=== PATIENT | male | born 1955 | race Caucasian/White ===

== ENCOUNTER 2020-01-17 15:37 | Emergency (ER) | payer MEDICARE, MEDICAID ==
[~2020-01-17] VITALS: Ht 190.5 cm; Wt 113.6 kg
[~2020-01-17 15:37] MED LIST: ALBU18HF2 INH; AMIO200T62 PO; APIX5TAB3 PO; DILT240C94 PO; FOLI0.4T14 PO; HYDR-3973 PO; LISI-604 PO; THIA100T70 PO; UMEC1DIS INH
[2020-01-17 17:00] VITALS: BP 124/67
[2020-01-17] MEDS ORDERED: LIDOcaine 1% W/epiNEPHrine 1:200,000 10ml vial IJ STA (17:12)
[2020-01-17] MEDS ORDERED: LIDOcaine 1% w/epiNEPHrine 1:200,000 30ml vial IJ STA (17:15)
== END 2020-01-17 18:34 | disposition home or self-care (01) ==
LOC: ER 15:37
DX: T81.31XA Disruption of external operation (surgical) wound, not elsewhere classified, initial encounter (principal); Z96.612 Presence of left artificial shoulder joint; X58.XXXA Exposure to other specified factors, initial encounter; Y93.89 Activity, other specified; Y92.89 Other specified places as the place of occurrence of the external cause; Y99.8 Other external cause status
CPT/HCPCS: 88305; 88311; 88331; 96374; 99283; 99284

== ENCOUNTER 2020-06-28 08:43 | Inpatient (IN) | payer MEDICARE, MEDICAID ==
[~2020-06-28] VITALS: Ht 190.5 cm; Wt 121.4 kg
[2020-06-28] VITALS (14 sets, daily range): BP systolic 106–142; BP diastolic 56–84
[~2020-06-28 08:43] MED LIST changes: -FOLI0.4T14 PO; -LISI-604 PO; +LISI-790 PO; -THIA100T70 PO; -UMEC1DIS INH; +UMEC1DIS PO; +cefazolin/dext.iso 2gm/100ml 100 ML IV ONE; +famotidine 20mg tablet PO ONE; +ringers solution, lacted 1,000 ML IV SCH; +tranexamic acid 650mg tablet PO ONE; +vancomycin 1,500 MG in NS 300ml IV soln IV ONE
[2020-06-28 10:31] LABS: ALANINE AMINOTRANSFERASE 15 U/L (12-78); ALBUMIN 2.4 G/DL (3.4-5.0); ALBUMIN/GLOBULIN RATIO 0.6 (1.1-1.5); ALKALINE PHOSPHATASE 85 IU/L (46-116); ANION GAP 7 (8-16); ASPARTATE AMINO TRANSFERASE 14 U/L (10-37); BILIRUBIN,TOTAL 0.4 MG/DL (0.1-1.0); BLOOD UREA NITROGEN 15 MG/DL (7-18); BUN/CREATININE RATIO 18.3 (5.4-32.0); C-REACTIVE PROTEIN 12.61 MG/DL (0.0-0.5); CALCIUM 8.6 MG/DL (8.5-10.1); CHLORIDE 100 MMOL/L (99-107); CREATININE 0.82 MG/DL (0.60-1.10); GLUCOSE 95 MG/DL (70-104); POTASSIUM 4.2 MMOL/L (3.5-5.1); SODIUM 136 MMOL/L (135-145); TOTAL CARBON DIOXIDE 29.1 MMOL/L (24-32); TOTAL PROTEIN 6.6 G/DL (6.4-8.2); eGFR > 90 ML/MIN
[2020-06-28] MEDS ORDERED: ketorolac trometh. 30mg/ml inj. ONE (10:55)
[2020-06-28] MEDS ORDERED: ROPIVAcaine 0.5% (5mg/ml) 30ml vial ONE ×2 (10:55→11:42)
[2020-06-28 11:10] LABS: BASOPHILS # (AUTO) 0.1 X10'3 (0-0.2); BASOPHILS % (AUTO) 1.1 % (0-1); EOSINOPHILS # (AUTO) 0.2 X10'3 (0-0.9); EOSINOPHILS % (AUTO) 2.3 % (0-6); HEMATOCRIT 32.9 % (42.0-52.0); HEMOGLOBIN 10.7 g/dl (14.0-17.9); LYMPHOCYTES # (AUTO) 1.4 X10'3 (1.1-4.8); LYMPHOCYTES % (AUTO) 21.7 % (21-51); MEAN CORPUSCULAR HEMOGLOBIN 29.2 PG (27.0-31.0); MEAN CORPUSCULAR HGB CONC 32.4 g/dL (33.0-36.5); MEAN CORPUSCULAR VOLUME 90.2 FL (78-98); MEAN PLATELET VOLUME 7.3 FL (7.4-10.4); MONOCYTES # (AUTO) 0.8 X10'3 (0-0.9); MONOCYTES % (AUTO) 12.2 % (2-12); NEUTROPHILS # (AUTO) 4.2 X10'3 (1.8-7.7); NEUTROPHILS % (AUTO) 62.7 % (42-75); PLATELET COUNT 309 X10'3 (140-440); RED BLOOD COUNT 3.64 X10'6 (4.70-6.10); RED CELL DISTRIBUTION WIDTH 14.7 % (11.5-14.5); WHITE BLOOD COUNT 6.6 X10'3 (4.5-11.0)
[2020-06-28] MEDS ORDERED: ondansetron/PF 4mg/2ml inj ONE (11:27)
[2020-06-28] MEDS ORDERED: sevoflurane 250ml liquid IH ONE (11:27)
[2020-06-28] MEDS ORDERED: fentaNYL/PF 50MCG/1 ML 2ML syringe ONE (11:39)
[2020-06-28] MEDS ORDERED: MIDAZolam 1 MG/ML 5ML VIAL ONE (11:40)
[2020-06-28] MEDS ORDERED: dexamethasone sod phosphate 4mg/ml inj. ONE (11:42)
[2020-06-28] MEDS ORDERED: propofol inj 20 ML IV ONE (11:42)
[2020-06-28] MEDS ORDERED: LIDOcaine 1%/PF 5ML 10 MG/ML VIAL ONE (11:42)
[2020-06-28] MEDS ORDERED: ondansetron/PF 4mg/2ml inj IV PRN ×2 (12:35→14:35)
[2020-06-28] MEDS ORDERED: ringers solution, lacted 1,000 ML IV SCH (12:35)
[2020-06-28] MEDS ORDERED: morphine 2 MG/ML inj. syringe IV PRN (12:35)
[2020-06-28] MEDS ORDERED: meperidine/PF 25mg/ml syringe IV PRN ×3 (12:35)
[2020-06-28] MEDS ORDERED: proCHLORperazine 10 MG/2 ml inj IV PRN (12:35)
[2020-06-28] MEDS ORDERED: morphine 4 MG/ML inj SYRINge IV PRN (12:35)
[2020-06-28] MEDS ORDERED: ketorolac trometh. 30mg/ml inj. IV ONE ×2 (12:41→13:20)
[2020-06-28] MEDS: ROPIVAcaine 0.5% (5mg/ml) 30ml vial IJ ONE ×2 (12:41→13:50)
[2020-06-28] MEDS: tobramycin sulfate 1.2gm vial TP ONE ×2 (12:56→13:24)
[2020-06-28] MEDS ORDERED: ROPIVAcaine 0.5% (5mg/ml) 30ml vial IJ ONE (13:20)
[2020-06-28] MEDS: vancomycin 1,000mg inj ONE ×2 (13:24→15:35)
--- NOTE | 2020-06-28 14:33 | NUR ---
Received from OR via ORTHO BED WITH PRRICARDO , accompanied by Anesthesiologist HUGO and report given by Anesthesiolgist. PATIENT WITH SLING TO LEFT UE, + CAP REFILL AND RADIAL PULSE PRESENT. SCDS DONNED. 18G PIV IN RIGHT UE RUNNING LR AT 100. DENIES PAIN AT THIS TIME. Addendum: 06/28/20 at 1445 by Faustino Gregory RN, RN Amended: Links added.
[2020-06-28] MEDS ORDERED: bisacodyl 10mg suppository rectal RC PRN (14:35)
[2020-06-28] MEDS ORDERED: magnesium hydroxide 30ml (MOM) UD suspension PO PRN (14:35)
[2020-06-28] MEDS ORDERED: acetaminophen 325mg tablet PO PRN (14:35)
[2020-06-28] MEDS ORDERED: oxyCODONE IR 5mg (immed. release) tablet PO PRN (14:35)
[2020-06-28] MEDS ORDERED: diphenhydrAMINE 25mg capsule PO PRN ×2 (14:35)
[2020-06-28] MEDS ORDERED: albuterol 2.5 MG/3 ML nebule NEB PRN (14:45)
--- NOTE | 2020-06-28 14:56 | NUR ---
Patient in room PAS IN 902. I have received report from Faustino LAMBERT and had the opportunity to ask questions and assume patient care.
--- NOTE | 2020-06-28 15:10 | NUR ---
PATIENT HAS MET ALL CRITERIA FOR TRANSFER TO THE SURGICAL/[facility]/PCU/ORTHO/ICU FLOOR. VSS. DRESSINGS INTACT. BED LOW, CALL LIGHT PRESENT AND 2 RAILS UP. RN PRESENT TO ACCEPT CARE OF PATIENT AND REPORT HAS BEEN CALLED. ALL QUESTIONS ANSWERED TO ACCEPTING RN. Addendum: 06/28/20 at 1511 by Faustino Gregory RN RN Amended: Links added.
[2020-06-28] MEDS: potassium cl 20mEq in 1/2 NS 1,000 ML IV SCH ×2 (16:32→22:35)
[2020-06-28] MEDS: ceFAZolin/D5W- 1GM premix 50 ML IV SCH (16:38)
[2020-06-28 16:56] LABS: ALANINE AMINOTRANSFERASE 14 U/L (12-78); ALBUMIN 2.2 G/DL (3.4-5.0); ALBUMIN/GLOBULIN RATIO 0.5 (1.1-1.5); ALKALINE PHOSPHATASE 79 IU/L (46-116); ASPARTATE AMINO TRANSFERASE 12 U/L (10-37); BILIRUBIN,DIRECT 0.2 MG/DL (0-0.3); BILIRUBIN,TOTAL 0.4 MG/DL (0.1-1.0); TOTAL PROTEIN 6.3 G/DL (6.4-8.2)
[2020-06-28] MEDS: oxyCODONE IR 5mg (immed. release) tablet PO PRN ×2 (17:13→21:20)
--- NOTE | 2020-06-28 18:58 | NUR ---
Problems reprioritized. Patient report given, questions answered & plan of care reviewed with Angeles LAMBERT.
[2020-06-28] MEDS ORDERED: vancomycin/NS 1 GM ADD-VANTAGE 250 ML IV SCH (20:00)
[2020-06-28] MEDS: sennosides 8.6mg tablet PO SCH (20:30)
[2020-06-28] MEDS: amiodarone 200mg tablet PO SCH (20:30)
[2020-06-28] MEDS: apixaban 5mg tablet PO SCH (20:30)
[2020-06-28] MEDS: acetaminophen 325mg tablet PO SCH (20:31)
[2020-06-29] MEDS: HYDROmorphone 1 mg/ml syringe IV PRN ×3 (00:29→21:38)
[2020-06-29] MEDS: ceFAZolin/D5W- 1GM premix 50 ML IV SCH (00:36)
[2020-06-29] MEDS: oxyCODONE IR 5mg (immed. release) tablet PO PRN ×7 (01:30→23:30)
[2020-06-29] MEDS: acetaminophen 325mg tablet PO SCH ×4 (01:30→19:34)
[2020-06-29 02:00] VITALS: BP 110/67
[2020-06-29 06:00] VITALS: BP 110/70
--- NOTE | 2020-06-29 06:12 | NUR ---
Problems reprioritized. Patient report given, questions answered & plan of care reviewed with PETRA Robertson.
--- NOTE | 2020-06-29 06:31 | NUR ---
Patient in room ORTHO 4024. I have received report from Angeles LAMBERT and had the opportunity to ask questions and assume patient care.
[2020-06-29] MEDS: potassium cl 20mEq in 1/2 NS 1,000 ML IV SCH ×3 (06:35→16:03)
[2020-06-29] MEDS: lisinopril 5mg tablet PO SCH (07:31)
[2020-06-29] MEDS: diltiazem CD 120mg capsule (once-daily) PO SCH (07:32)
[2020-06-29] MEDS: amiodarone 200mg tablet PO SCH ×2 (07:33→19:35)
[2020-06-29] MEDS: apixaban 5mg tablet PO SCH ×2 (07:36→19:34)
[2020-06-29 07:59] LABS: ANION GAP 7 (8-16); CHLORIDE 102 MMOL/L (99-107); SODIUM 135 MMOL/L (135-145); TOTAL CARBON DIOXIDE 26.5 MMOL/L (24-32)
--- NOTE | 2020-06-29 09:05 | NUR ---
Received from OR via [facility] , accompanied by Anesthesiologist HUGO and report given by Anesthesiolgist. PATIENT WITH 20G PIV IN LEFT UE RUNNING LR AT 100. DENIES PAIN LEFT FOOT WITH TOES EXPOSED WITH + CAP REFILL AND ARE ALL PWD. 10L MASK ON WITH 100% SATURATIONS. DENIES PAIN.
[2020-06-29 10:00] VITALS: BP 129/76
[2020-06-29 10:06] LABS: HEMATOCRIT 35.8 % (42.0-52.0); HEMOGLOBIN 11.5 g/dl (14.0-17.9); MEAN CORPUSCULAR HEMOGLOBIN 29.1 PG (27.0-31.0); MEAN CORPUSCULAR HGB CONC 32.2 g/dL (33.0-36.5); MEAN CORPUSCULAR VOLUME 90.6 FL (78-98); RED BLOOD COUNT 3.95 X10'6 (4.70-6.10); RED CELL DISTRIBUTION WIDTH 14.3 % (11.5-14.5)
[2020-06-29] MEDS: CefTRIAXone 2gm/D5W 50ml BAG 50 ML IV SCH (10:06)
[2020-06-29 10:11] LABS: WHITE BLOOD COUNT 14.1 X10'3 (4.5-11.0)
[2020-06-29 10:12] LABS: MEAN PLATELET VOLUME 8.1 FL (7.4-10.4); PLATELET COUNT 436 X10'3 (140-440)
[2020-06-29 10:40] LABS: PLATELET ESTIMATE NORMAL; TOTAL CELLS COUNTED 100
[2020-06-29] MEDS: vancomycin/NS 1 GM ADD-VANTAGE 250 ML IV SCH ×2 (11:19→18:52)
[2020-06-29] MEDS: HYDROmorphone inj. 0.5 MG/0.5 ML DISP.SYRIN IV PRN (13:26)
[2020-06-29 14:00] VITALS: BP 102/66
[2020-06-29] MEDS ORDERED: ondansetron 4mg rapidly disintigrating tab PO PRN (14:05)
--- NOTE | 2020-06-29 16:37 | NUR ---
Pt has had 170ml out of his ZEE drain so far this shift, MD aware. Pt had a new IV placed in his L hand. Pt continues to refuse to use his shoulder sling or wrap but agrees to elevate L arm on pillows in recliner. Pt displays no sign of vascular occlusion in LUE. Strong L radial pulse, L hand cap refil < 3 seconds. Will continue to monitor pt.
[2020-06-29 18:00] VITALS: BP 129/69
--- NOTE | 2020-06-29 18:33 | NUR ---
Problems reprioritized. Patient report given, questions answered & plan of care reviewed with Angeles LAMBERT.
[2020-06-29] MEDS: lactobacillus rhamnosus 10,000 MMU CELLS/CAPSULE PO SCH (19:34)
[2020-06-29] MEDS: sennosides 8.6mg tablet PO SCH (19:35)
[2020-06-29 22:00] VITALS: BP 114/61
[2020-06-30] MEDS: acetaminophen 325mg tablet PO SCH ×3 (02:15→13:13)
[2020-06-30] MEDS: vancomycin/NS 1 GM ADD-VANTAGE 250 ML IV SCH ×3 (02:15→17:41)
[2020-06-30] MEDS: oxyCODONE IR 5mg (immed. release) tablet PO PRN ×4 (03:24→21:56)
[2020-06-30] MEDS: potassium cl 20mEq in 1/2 NS 1,000 ML IV SCH (04:48)
[2020-06-30 06:00] VITALS: BP 127/67
--- NOTE | 2020-06-30 06:33 | NUR ---
Problems reprioritized. Patient report given, questions answered & plan of care reviewed with PETRA Robertson.
[2020-06-30] MEDS: amiodarone 200mg tablet PO SCH ×2 (07:09→20:04)
[2020-06-30] MEDS: apixaban 5mg tablet PO SCH ×2 (07:09→20:04)
[2020-06-30] MEDS: diltiazem CD 120mg capsule (once-daily) PO SCH (07:10)
[2020-06-30] MEDS: lisinopril 5mg tablet PO SCH (07:12)
[2020-06-30] MEDS: lactobacillus rhamnosus 10,000 MMU CELLS/CAPSULE PO SCH ×2 (07:12→20:04)
[2020-06-30] MEDS: HYDROmorphone 1 mg/ml syringe IV PRN ×2 (07:13→15:24)
[2020-06-30 07:14] LABS: EOSINOPHILS # (AUTO) 0.1 X10'3 (0-0.9); HEMOGLOBIN 11.2 g/dl (14.0-17.9); RED CELL DISTRIBUTION WIDTH 14.5 % (11.5-14.5)
[2020-06-30 07:15] LABS: BASOPHILS % (AUTO) 0.4 % (0-1); EOSINOPHILS % (AUTO) 0.5 % (0-6); HEMATOCRIT 34.8 % (42.0-52.0); LYMPHOCYTES % (AUTO) 25.9 % (21-51); MEAN CORPUSCULAR HEMOGLOBIN 29.4 PG (27.0-31.0); MEAN CORPUSCULAR HGB CONC 32.2 g/dL (33.0-36.5); MEAN CORPUSCULAR VOLUME 91.2 FL (78-98); MONOCYTES % (AUTO) 8.9 % (2-12); NEUTROPHILS # (AUTO) 7.3 X10'3 (1.8-7.7); NEUTROPHILS % (AUTO) 64.3 % (42-75); RED BLOOD COUNT 3.82 X10'6 (4.70-6.10)
[2020-06-30] MEDS: CefTRIAXone 2gm/D5W 50ml BAG 50 ML IV SCH (07:17)
[2020-06-30 07:21] LABS: MEAN PLATELET VOLUME 7.3 FL (7.4-10.4)
[2020-06-30 07:22] LABS: PLATELET COUNT 245 X10'3 (140-440); WHITE BLOOD COUNT 7.3 X10'3 (4.5-11.0)
[2020-06-30] MEDS ORDERED: VANCOMYCIN LEVEL IV ONE (09:30)
[2020-06-30 10:00] VITALS: BP 115/62
[2020-06-30] MEDS ORDERED: acetaminophen 325mg tablet PO PRN (14:35)
--- NOTE | 2020-06-30 16:16 | NUR ---
Pts only complaint is persistent pain the L shoulder. Output for ZEE drain is 50ml so far this shift. Pt continues to use L shoulder more than advised. Pt refuses shoulder wrap and sling. Will continue to monitor patient and remind pt to limit mobility with LUE.
[2020-06-30 18:00] VITALS: BP 111/67
--- NOTE | 2020-06-30 18:11 | NUR ---
Problems reprioritized. Patient report given, questions answered & plan of care reviewed with Praveena LAMBERT.
[2020-06-30] MEDS: sennosides 8.6mg tablet PO SCH (20:04)
[2020-06-30] MEDS: HYDROmorphone inj. 0.5 MG/0.5 ML DISP.SYRIN IV PRN (20:05)
--- NOTE | 2020-06-30 23:56 | NUR ---
Pt called out with c/o of his drain leaking blood onto the arm/pillow. I assessed it and there is serosanguineous drainage on the OpSite dressing onto the arm and pillowcase. I used sterile gloves and dried the drainage with sterile 4x4's, I then placed new 4x4's by ZEE site and an ABD pad between the arm and chest. I secured the dressing with stretchy Roberta and will notify Praveena LAMBERT to monitor it. The ZEE might need to be dc'd if continues to drain onto skin and not into the bulb. There is about 10-15ml's of serosanguineous drainage in the ZEE at this time. Per patient this has been happening since the drain was placed. If this continues then the drain will need to be removed and to inform the surgeon at that time.
[2020-07-01] MEDS: vancomycin/NS 1 GM ADD-VANTAGE 250 ML IV SCH ×3 (02:20→17:12)
[2020-07-01] MEDS: HYDROmorphone 1 mg/ml syringe IV PRN ×2 (02:21→16:03)
[2020-07-01] MEDS: oxyCODONE IR 5mg (immed. release) tablet PO PRN ×4 (05:00→21:45)
[2020-07-01 06:00] VITALS: BP 146/68
--- NOTE | 2020-07-01 06:04 | NUR ---
REPORT GIVEN TO PETRA CARRION.
[2020-07-01] MEDS: CefTRIAXone 2gm/D5W 50ml BAG 50 ML IV SCH (08:19)
[2020-07-01] MEDS: diltiazem CD 120mg capsule (once-daily) PO SCH (08:20)
[2020-07-01] MEDS: amiodarone 200mg tablet PO SCH ×2 (08:20→21:01)
[2020-07-01] MEDS: lactobacillus rhamnosus 10,000 MMU CELLS/CAPSULE PO SCH ×2 (08:20→21:01)
[2020-07-01] MEDS: HYDROmorphone inj. 0.5 MG/0.5 ML DISP.SYRIN IV PRN (08:21)
[2020-07-01] MEDS: lisinopril 5mg tablet PO SCH (08:21)
[2020-07-01] MEDS: apixaban 5mg tablet PO SCH ×2 (08:21→21:01)
[2020-07-01 09:50] LABS: RED CELL DISTRIBUTION WIDTH 14.6 % (11.5-14.5)
[2020-07-01 09:51] LABS: HEMATOCRIT 33.9 % (42.0-52.0); HEMOGLOBIN 10.9 g/dl (14.0-17.9); MEAN CORPUSCULAR HEMOGLOBIN 29.4 PG (27.0-31.0); MEAN CORPUSCULAR HGB CONC 32.1 g/dL (33.0-36.5); MEAN CORPUSCULAR VOLUME 91.4 FL (78-98); RED BLOOD COUNT 3.71 X10'6 (4.70-6.10)
[2020-07-01 10:00] VITALS: BP 124/65
[2020-07-01 11:12] LABS: TOTAL CELLS COUNTED 100
[2020-07-01 11:13] LABS: ELLIPTOCYTES FEW; PLATELET ESTIMATE NORMAL
[2020-07-01 11:14] LABS: PLATELET COUNT 345 X10'3 (140-440)
[2020-07-01 11:18] LABS: MEAN PLATELET VOLUME 7.8 FL (7.4-10.4)
--- NOTE | 2020-07-01 13:12 | NUR ---
at approximately 1100 pts ZEE drain fell out. drain contained 15mL of output. dressing reinforced. no complications
[2020-07-01 18:00] VITALS: BP 122/67
--- NOTE | 2020-07-01 18:43 | NUR ---
Problems reprioritized. Patient report given, questions answered & plan of care reviewed with Rosario LAMBERT.
[2020-07-01] MEDS: sennosides 8.6mg tablet PO SCH (21:01)
[2020-07-01 22:00] VITALS: BP 109/55
[2020-07-02] MEDS: vancomycin/NS 1 GM ADD-VANTAGE 250 ML IV SCH ×2 (01:28→11:35)
[2020-07-02] MEDS: oxyCODONE IR 5mg (immed. release) tablet PO PRN ×3 (01:36→11:36)
--- NOTE | 2020-07-02 06:23 | NUR ---
REPORT GIVEN TO PETRA FREITAS.
[2020-07-02] MEDS: diltiazem CD 120mg capsule (once-daily) PO SCH (08:10)
[2020-07-02] MEDS: amiodarone 200mg tablet PO SCH (08:11)
[2020-07-02] MEDS: lactobacillus rhamnosus 10,000 MMU CELLS/CAPSULE PO SCH (08:11)
[2020-07-02] MEDS: apixaban 5mg tablet PO SCH (08:12)
[2020-07-02 08:14] VITALS: BP_SYST 139
[2020-07-02] MEDS: lisinopril 5mg tablet PO SCH (08:14)
[2020-07-02] MEDS: CefTRIAXone 2gm/D5W 50ml BAG 50 ML IV SCH (08:40)
--- NOTE | 2020-07-02 10:58 | NUR ---
ACTING CLINICAL INSTRUCTOR, I REVIEWED STUDENT NURSE DOCUMENTATION
--- NOTE | 2020-07-02 11:34 | NUR ---
5F DUAL LUMEN PICC LINE INFORMATION: REF: [id number] LOT: [id number] EXP: 01/20/2021
== END 2020-07-02 16:00 | disposition home health service (06) | DRG 483 ==
LOC: PAS IN 08:43 → UNDOADMIN 08:43 → PAS IN 14:34 → ORTHO 4S 15:20 → PAS IN 15:20 → ORTHO 4S 06-29 07:00
PROVIDERS: ADMIT Orthopaedic Surgery; ATTEND Orthopaedic Surgery
PROC: 0RHK08Z Insertion of Spacer into Left Shoulder Joint, Open Approach (ICD-10-PCS; 2020-06-28)
PROC: 0RPK0JZ Removal of Synthetic Substitute from Left Shoulder Joint, Open Approach (ICD-10-PCS; 2020-06-28)
PROC: 3E0T3BZ Introduction of Anesthetic Agent into Peripheral Nerves and Plexi, Percutaneous Approach (ICD-10-PCS; 2020-06-28)
PROC: 0RRK0JZ Replacement of Left Shoulder Joint with Synthetic Substitute, Open Approach (ICD-10-PCS; principal; 2020-06-28 11:27)
PROC: 02HV33Z Insertion of Infusion Device into Superior Vena Cava, Percutaneous Approach (ICD-10-PCS; 2020-07-02)
PROC: B548ZZA Ultrasonography of Superior Vena Cava, Guidance (ICD-10-PCS; 2020-07-02)
DX: T84.59XA Infection and inflammatory reaction due to other internal joint prosthesis, initial encounter (principal); L02.414 Cutaneous abscess of left upper limb; Z96.612 Presence of left artificial shoulder joint; M75.122 Complete rotator cuff tear or rupture of left shoulder, not specified as traumatic; Y83.1 Surgical operation with implant of artificial internal device as the cause of abnormal reaction of the patient, or of later complication, without mention of misadventure at the time of the procedure; Y92.89 Other specified places as the place of occurrence of the external cause; Z79.899 Other long term (current) drug therapy; Z72.0 Tobacco use; D50.0 Iron deficiency anemia secondary to blood loss (chronic)
CPT/HCPCS: 36415; 36573; 80051; 80053; 80076; 80202; 84439; 84443; 85007; 85025; 85651; 86140; 86885; 86900; 86901; 87070; 87075; 87081; 87102; 93005; 94760; 97110; 97116; 97161; 97530; A4215; A4565; A4618; A7000; C1713; C1776; G0378; J0690; J0696; J1100; J1170; J1885; J2250; J2405; J2704; J2795; J3010; J3260; J3370; J3480; J7040; J7120

== ENCOUNTER 2020-11-21 13:50 | Outpatient (CLI) | payer MEDICARE, MEDICAID ==
[~2020-11-21 13:50] MED LIST changes: -cefazolin/dext.iso 2gm/100ml 100 ML IV ONE; -famotidine 20mg tablet PO ONE; -ringers solution, lacted 1,000 ML IV SCH; -tranexamic acid 650mg tablet PO ONE; -vancomycin 1,500 MG in NS 300ml IV soln IV ONE
[2020-11-21] MEDS ORDERED: LISI20TA28 PO (14:26)
[2020-11-21 14:42] LABS: BASOPHILS # (AUTO) 0.1 X10'3 (0-0.2); BASOPHILS % (AUTO) 0.8 % (0-1); EOSINOPHILS # (AUTO) 0.1 X10'3 (0-0.9); LYMPHOCYTES # (AUTO) 1.9 X10'3 (1.1-4.8); LYMPHOCYTES % (AUTO) 27.3 % (21-51); MEAN CORPUSCULAR HEMOGLOBIN 29.3 PG (27.0-31.0); MEAN PLATELET VOLUME 8.7 FL (7.4-10.4); MONOCYTES # (AUTO) 0.7 X10'3 (0-0.9); MONOCYTES % (AUTO) 10.1 % (2-12); NEUTROPHILS # (AUTO) 4.1 X10'3 (1.8-7.7); NEUTROPHILS % (AUTO) 59.8 % (42-75); PRE OP HEMATOCRIT 42.6 % (42.0-52.0); PRE OP PLATELET COUNT 161 X10'3 (140-440); RED BLOOD COUNT 4.78 X10'6 (4.70-6.10); RED CELL DISTRIBUTION WIDTH 15.4 % (11.5-14.5)
[2020-11-21 14:58] LABS: ALBUMIN 3.8 G/DL (3.4-5.0); ALKALINE PHOSPHATASE 89 IU/L (46-116); BLOOD UREA NITROGEN 26 MG/DL (7-18); BUN/CREATININE RATIO 24.5 (5.4-32.0); CALCIUM 8.8 MG/DL (8.5-10.1); CHLORIDE 103 MMOL/L (99-107); CREATININE 1.06 MG/DL (0.60-1.10); PRE OP ALT 26 U/L (30-65); PRE OP ANION GAP 8 (8-16); PRE OP AST 15 U/L (10-37); PRE OP BILIRUB, TOTAL 0.4 MG/DL (0.0-1.0); PRE OP GLUCOSE 91 MG/DL (70-104); PRE OP POTASSIUM 4.2 MMOL/L (3.4-5.1); PRE OP SODIUM 140 MMOL/L (135-145); TOTAL CARBON DIOXIDE 29.5 MMOL/L (24-32); TOTAL PROTEIN 7.8 G/DL (6.4-8.2); eGFR 70 ML/MIN
== END 2020-11-21 23:59 | disposition home or self-care (01) ==
LOC: PRE-OP 13:50 → EDSTATUS 12-28 10:00
PROVIDERS: ATTEND Orthopaedic Surgery
DX: Z01.812 Encounter for preprocedural laboratory examination (principal); T84.59XA Infection and inflammatory reaction due to other internal joint prosthesis, initial encounter; M25.512 Pain in left shoulder; X58.XXXA Exposure to other specified factors, initial encounter; Y93.89 Activity, other specified; Y92.89 Other specified places as the place of occurrence of the external cause; Y99.8 Other external cause status; Z72.0 Tobacco use; Z96.612 Presence of left artificial shoulder joint; Z20.822 Contact with and (suspected) exposure to COVID-19
CPT/HCPCS: 36415; 71046; 80053; 85025; 87081; U0003; U0005

== ENCOUNTER 2020-12-28 06:59 | Inpatient (IN) | payer MEDICARE, MEDICAID ==
[2020-12-21 11:56] LABS: PRE OP INR 1.1 INR; PRE OP PROTIME 11.4 SECONDS (9.0-12.0)
[2020-12-21 11:59] LABS: ALBUMIN 3.7 G/DL (3.4-5.0); ALKALINE PHOSPHATASE 102 IU/L (46-116); BLOOD UREA NITROGEN 27 MG/DL (7-18); BUN/CREATININE RATIO 23.7 (5.4-32.0); CHLORIDE 102 MMOL/L (99-107); CREATININE 1.14 MG/DL (0.60-1.10); PRE OP ALT 18 U/L (30-65); PRE OP ANION GAP 11 (8-16); PRE OP AST 12 U/L (10-37); PRE OP BILIRUB, TOTAL 0.4 MG/DL (0.0-1.0); PRE OP GLUCOSE 101 MG/DL (70-104); PRE OP POTASSIUM 4.5 MMOL/L (3.4-5.1); PRE OP SODIUM 139 MMOL/L (135-145); TOTAL CARBON DIOXIDE 26.1 MMOL/L (24-32); TOTAL PROTEIN 7.3 G/DL (6.4-8.2); eGFR 64 ML/MIN
[~2020-12-28] VITALS: Ht 190.5 cm; Wt 122.9 kg
[2020-12-28] VITALS (22 sets, daily range): BP systolic 104–164; BP diastolic 53–96
[~2020-12-28 06:59] MED LIST changes: -ALBU18HF2 INH; -LISI-790 PO; +LISI20TA28 PO; -UMEC1DIS PO; +albuterol 2.5 MG/3 ML nebule NEB PRN; +ceFAZolin inj. 3,000 MG in normal saline 100ml IV soln 100 ML IV ONE; +famotidine 20mg tablet PO ONE; +ringers solution, lacted 1,000 ML IV SCH; +tranexamic acid 650mg tablet PO ONE; +vancomycin 1,500 MG in NS 300ml IV soln IV ONE
[2020-12-28] MEDS ORDERED: LIDOcaine 1% (10mg/ml) 2ml vial ONE (08:52)
[2020-12-28 09:13] LABS: EOSINOPHILS # (AUTO) 0.1 X10'3 (0-0.9); EOSINOPHILS % (AUTO) 1.7 % (0-6); LYMPHOCYTES % (AUTO) 22.4 % (21-51); MEAN CORPUSCULAR HGB CONC 33.7 g/dL (33.0-36.5); MEAN CORPUSCULAR VOLUME 89.2 FL (78-98); MEAN PLATELET VOLUME 7.6 FL (7.4-10.4); MONOCYTES # (AUTO) 0.5 X10'3 (0-0.9); MONOCYTES % (AUTO) 10.8 % (2-12); NEUTROPHILS % (AUTO) 64.1 % (42-75); PRE OP HEMATOCRIT 41.1 % (42.0-52.0); PRE OP HEMOGLOBIN 13.8 g/dL (14.0-17.9); PRE OP PLATELET COUNT 226 X10'3 (140-440); RED BLOOD COUNT 4.61 X10'6 (4.70-6.10); RED CELL DISTRIBUTION WIDTH 15.9 % (11.5-14.5)
[2020-12-28] MEDS ORDERED: ROPIVAcaine 0.5% (5mg/ml) 30ml vial ONE ×2 (11:07→12:41)
[2020-12-28] MEDS ORDERED: sevoflurane 250ml liquid IH ONE (11:50)
[2020-12-28] MEDS ORDERED: neostigmine methylsulfate 1 MG/ML 10ml vial ONE (11:50)
[2020-12-28] MEDS ORDERED: glycopyrrolate 0.2mg/ml inj ONE (11:50)
[2020-12-28] MEDS ORDERED: fentaNYL /PF 50mcg/ml 5ml ampule ONE (11:57)
[2020-12-28] MEDS ORDERED: midazolam 1 mg/ML 2ml injection ONE (11:57)
[2020-12-28] MEDS ORDERED: propofol inj 20 ML IV ONE (12:41)
[2020-12-28] MEDS ORDERED: rocuronium 10mg/ml inj IV ONE (12:41)
[2020-12-28] MEDS ORDERED: LIDOcaine 2% (20mg/ml) 5ml vial ONE (12:41)
[2020-12-28] MEDS ORDERED: LIDOcaine 1%/PF 5ML 10 MG/ML VIAL ONE (12:41)
[2020-12-28] MEDS ORDERED: dexamethasone sod phosphate 4mg/ml inj. ONE (12:48)
[2020-12-28] MEDS ORDERED: ondansetron/PF 4mg/2ml inj ONE (12:48)
[2020-12-28] MEDS ORDERED: meperidine/PF 25mg/ml syringe IV PRN (13:05)
[2020-12-28] MEDS ORDERED: proCHLORperazine 10 MG/2 ml inj IV PRN (13:05)
[2020-12-28] MEDS ORDERED: labetalol 20mg/4ml (5mg/ml) syringe IV PRN (13:05)
[2020-12-28] MEDS ORDERED: ondansetron/PF 4mg/2ml inj IV PRN ×2 (13:05→14:55)
[2020-12-28] MEDS ORDERED: hydrALAZINE 20mg/ml inj. IV PRN (13:05)
[2020-12-28] MEDS ORDERED: morphine 4 MG/ML inj SYRINge IV PRN (13:05)
[2020-12-28] MEDS ORDERED: HYDROmorphone/PF 0.2 MG/ML SYRINGE IV PRN (13:05)
[2020-12-28] MEDS ORDERED: acetaminophen 1,000mg/100ml IV 100 ML IV PRN (13:05)
[2020-12-28] MEDS ORDERED: ringers solution, lacted 1,000 ML IV SCH (13:05)
[2020-12-28] MEDS ORDERED: morphine 2 MG/ML inj. syringe IV PRN (13:05)
[2020-12-28] MEDS ORDERED: ROPIVAcaine 0.2% (10 MG/5 ML) BOLUS INJECTION INTERSCALE PRN (13:10)
[2020-12-28] MEDS ORDERED: ROPIVAcaine 0.2%/PF PUMP/bolus 545 ML INTERSCALE SCH (13:10)
[2020-12-28] MEDS ORDERED: ketorolac trometh. 30mg/ml inj. IM ONE (13:17)
--- NOTE | 2020-12-28 14:24 | NUR ---
Received from OR via ORTHO BED , accompanied by Anesthesiologist ANAIS and report given by Anesthesiolgist. PATIENT WITH 20G PIV IN RIGHT UE RUNNING LR AT 100. VSS. PATIENT WITH 10L MASK ON 100% SATURATIONS. ON Q NERVE BLOCK PRESENT TO LEFT SHOULDER. ANTERIOR SHOULDER DRESSING WITH SHOULDER WRAP AND POWDER PACK PRESENT. Addendum: 12/28/20 at 1435 by Faustino Gregory RN, RN Amended: Links added.
[2020-12-28] MEDS: HYDROmorphone/PF 0.2 MG/ML SYRINGE IV PRN ×2 (14:46→15:32)
[2020-12-28] MEDS ORDERED: HYDROcodone/acetaminophen 10/325mg tab PO PRN (14:55)
[2020-12-28] MEDS ORDERED: oxyCODONE IR 5mg (immed. release) tablet PO PRN (14:55)
[2020-12-28] MEDS ORDERED: acetaminophen 325mg tablet PO PRN (14:55)
[2020-12-28] MEDS ORDERED: bisacodyl 10mg suppository rectal RC PRN (14:55)
[2020-12-28] MEDS ORDERED: diphenhydrAMINE 25mg capsule PO PRN ×2 (14:55)
[2020-12-28] MEDS ORDERED: magnesium hydroxide 30ml (MOM) UD suspension PO PRN (14:55)
[2020-12-28] MEDS ORDERED: HYDROmorphone inj. 0.5 MG/0.5 ML DISP.SYRIN IV PRN (14:55)
--- NOTE | 2020-12-28 16:04 | NUR ---
Report called to receiving nurse. Transferred via SURGICAL BED WITH [facility]ong[facility] . Special Issues communicated to receiving nurse SHEYLA LAMBERT.VSS. BED LOW , CALL LIGHT PRESENT. RN PRESENT TO ACCEPT CARE OF PATIENT. ALL QUESTIONS ANSWERED AND SHEYLA TOOK PATIENT CARE OVER. Addendum: 12/28/20 at 1629 by Faustino Gregory RN RN Amended: Links added.
[2020-12-28 16:19] LABS: APPEARANCE,SYNOVIAL FLUID HAZY; COLOR,SYNOVIAL FLUID YELLOW; NEUTROPHILS,SYNOVIAL FLUID 4 % (0-25); SYN RBC 1620 /CU MM (0); SYN WBC 180 /CU MM (0-200)
[2020-12-28 16:20] LABS: LYMPHOCYTES,SYNOVIAL FLUID 67 % (0-75); MONOCYTES,SYNOVIAL FLUID 29 % (0-0)
--- NOTE | 2020-12-28 16:21 | NUR ---
DILAUDID AND MORPHINE REASSESSMENT REQUIRED PRIOR TO ARRIVAL ON SURGICAL UNIT AT 1410.
[2020-12-28] MEDS: oxyCODONE IR 5mg (immed. release) tablet PO PRN ×2 (16:38→21:57)
[2020-12-28] MEDS: potassium cl 20mEq in 1/2 NS 1,000 ML IV SCH ×2 (16:39→23:23)
[2020-12-28] MEDS: ceFAZolin/D5W- 1GM premix 50 ML IV SCH (17:49)
--- NOTE | 2020-12-28 19:07 | NUR ---
Problems reprioritized. Patient report given, questions answered & plan of care reviewed with SOUMYA LAMBERT.
[2020-12-28] MEDS ORDERED: vancomycin/NS 1 GM ADD-VANTAGE 250 ML IV SCH (20:00)
[2020-12-28] MEDS: apixaban 5mg tablet PO SCH (20:00)
[2020-12-28] MEDS: acetaminophen 325mg tablet PO SCH (20:02)
[2020-12-28] MEDS ORDERED: sennosides 8.6mg tablet PO SCH (21:00)
[2020-12-28] MEDS: HYDROmorphone 1 mg/ml syringe IV PRN (23:23)
[2020-12-29] VITALS: BP 104/63
[2020-12-29] MEDS: ceFAZolin/D5W- 1GM premix 50 ML IV SCH (00:13)
[2020-12-29] MEDS: oxyCODONE IR 5mg (immed. release) tablet PO PRN (04:42)
[2020-12-29] MEDS: acetaminophen 325mg tablet PO SCH ×2 (04:42→08:56)
[2020-12-29 05:58] LABS: ANION GAP 9 (8-16); CHLORIDE 104 MMOL/L (99-107); POTASSIUM 4.4 MMOL/L (3.5-5.1); SODIUM 138 MMOL/L (135-145); TOTAL CARBON DIOXIDE 24.8 MMOL/L (24-32)
--- NOTE | 2020-12-29 06:42 | NUR ---
Patient in room [facility]LENY 360. I have received report from SOUMYA LAMBERT and had the opportunity to ask questions and assume patient care.
[2020-12-29] MEDS: HYDROmorphone 1 mg/ml syringe IV PRN (07:19)
[2020-12-29 07:50] LABS: BASOPHILS % (AUTO) 0.2 % (0-1); EOSINOPHILS % (AUTO) 0 % (0-6); HEMATOCRIT 35.8 % (42.0-52.0); HEMOGLOBIN 12.1 g/dl (14.0-17.9); LYMPHOCYTES # (AUTO) 0.7 X10'3 (1.1-4.8); LYMPHOCYTES % (AUTO) 7.8 % (21-51); MEAN CORPUSCULAR HEMOGLOBIN 30.4 PG (27.0-31.0); MEAN CORPUSCULAR HGB CONC 33.9 g/dL (33.0-36.5); MEAN CORPUSCULAR VOLUME 89.8 FL (78-98); MEAN PLATELET VOLUME 7.8 FL (7.4-10.4); MONOCYTES # (AUTO) 0.8 X10'3 (0-0.9); MONOCYTES % (AUTO) 8.5 % (2-12); NEUTROPHILS # (AUTO) 7.7 X10'3 (1.8-7.7); NEUTROPHILS % (AUTO) 83.5 % (42-75); PLATELET COUNT 214 X10'3 (140-440); RED BLOOD COUNT 3.99 X10'6 (4.70-6.10); RED CELL DISTRIBUTION WIDTH 15.8 % (11.5-14.5); WHITE BLOOD COUNT 9.2 X10'3 (4.5-11.0)
[2020-12-29 08:00] VITALS: BP 128/76
[2020-12-29] MEDS ORDERED: amiodarone 200mg tablet PO SCH (08:00)
[2020-12-29] MEDS ORDERED: lisinopril 20mg tablet PO SCH (08:00)
[2020-12-29] MEDS ORDERED: diltiazem CD 120mg capsule (once-daily) PO SCH (08:00)
--- NOTE | 2020-12-29 08:33 | NUR ---
Patient sitting up in chair having breakfast. Addendum: 12/29/20 at 0877 by Chandu MUSTAFA Amended: Links added.
[2020-12-29] MEDS: apixaban 5mg tablet PO SCH (08:58)
[2020-12-29] MEDS: potassium cl 20mEq in 1/2 NS 1,000 ML IV SCH (08:59)
--- NOTE | 2020-12-29 09:56 | NUR ---
UPON PATIENT GETTING READY TO GO HOME AT DISCHARGE PATIENT STARTED TO PUT ON THE SHOES AND SHIRT, AND LEFT SHOULDER AT SURGICAL INCISION LINE STARTED TO BLEED. PATIENT SHOULDER WRAP SATURATED THROUGH. PRESSURE WAS IS BEING HELD AND DRESSING WAS CHANGED AT THIS TIME AND SURGEON WAS NOTIFIED. SURGEON SAID TO MONITOR THE BLEEDING AND HOLD PRESSURE. PATIENT IS TO GO HOME WITH EXTRA ABD DRESSINGS, EXTRA ISLAND DRESSINGS, AND EXTRA GAUZE FOR ANY TYPE OF BLEEDING THAT MIGHT OCCUR AT HOME.
[2020-12-29 11:41] VITALS: BP 126/69
--- NOTE | 2020-12-29 14:17 | NUR ---
PATIENT DISCHARGED BY STUDENT AND IV WAS TAKEN OUT AT THE TIME OF DISCHARGE WELL, PATIENT LEFT WITH ALL BELONGINGS AT DISCHARGE EXCEPT COMPUTER EMERY GRINDER THAT HE WAS NOTIFIED THAT IT WAS STILL AT OUT FACILITY. PATIENT WAS EDUCATED ON DISCHARGE AND DRESSING CARE AT THE TIME OF DISCHARGE. PATIENT WAS TAKEN DOWN TO THE LOBBY VIA WHEEL CHAIR AND DROVE HIMSELF HOME.
[2020-12-29] MEDS ORDERED: celeCOXIB 100mg capsule PO SCH (20:00)
[2020-12-30] MEDS ORDERED: acetaminophen 325mg tablet PO PRN (14:55)
== END 2020-12-29 12:23 | disposition home or self-care (01) | DRG 483 ==
LOC: UNDOADMIN 06:59 → PAS IN 06:59 → SUR 3N 16:17 → PAS IN 16:17
PROVIDERS: ADMIT Orthopaedic Surgery; ATTEND Orthopaedic Surgery
PROC: 3E0T33Z Introduction of Anti-inflammatory into Peripheral Nerves and Plexi, Percutaneous Approach (ICD-10-PCS; 2020-12-28)
PROC: 0RRK0JZ Replacement of Left Shoulder Joint with Synthetic Substitute, Open Approach (ICD-10-PCS; 2020-12-28)
PROC: 0RPK08Z Removal of Spacer from Left Shoulder Joint, Open Approach (ICD-10-PCS; 2020-12-28)
PROC: 3E0T3BZ Introduction of Anesthetic Agent into Peripheral Nerves and Plexi, Percutaneous Approach (ICD-10-PCS; principal; 2020-12-28 11:50)
DX: T84.59XA Infection and inflammatory reaction due to other internal joint prosthesis, initial encounter (principal); Z89.232 Acquired absence of left shoulder; F17.210 Nicotine dependence, cigarettes, uncomplicated; M25.512 Pain in left shoulder; G89.29 Other chronic pain; F32.A Depression, unspecified; I10 Essential (primary) hypertension; J45.909 Unspecified asthma, uncomplicated; E66.9 Obesity, unspecified; Z68.33 Body mass index [BMI] 33.0-33.9, adult
CPT/HCPCS: 36415; 80051; 80053; 82948; 85025; 85610; 85730; 87070; 87075; 87081; 89051; 97110; 97116; 97161; 97530; 97535; A4565; A4618; A7000; C1713; C1776; G0378; J0690; J1100; J1170; J1885; J2250; J2270; J2405; J2704; J2710; J2795; J3010; J3370; J3480; J3490; J7040; J7120; U0003; U0005

== ENCOUNTER 2021-01-22 00:19 | Emergency (ER) | payer MEDICARE, MEDICAID ==
[~2021-01-22] VITALS: Ht 190.5 cm; Wt 118.2 kg
[~2021-01-22 00:19] MED LIST changes: -albuterol 2.5 MG/3 ML nebule NEB PRN; -ceFAZolin inj. 3,000 MG in normal saline 100ml IV soln 100 ML IV ONE; -famotidine 20mg tablet PO ONE; -ringers solution, lacted 1,000 ML IV SCH; -tranexamic acid 650mg tablet PO ONE; -vancomycin 1,500 MG in NS 300ml IV soln IV ONE
[2021-01-22] MEDS ORDERED: GABA-534 PO (04:39)
[2021-01-22 04:53] VITALS: BP 176/112
== END 2021-01-22 04:54 | disposition home or self-care (01) ==
LOC: ER 00:20
DX: G89.29 Other chronic pain (principal); M79.672 Pain in left foot; Z79.899 Other long term (current) drug therapy
CPT/HCPCS: 73630; 99283

== ENCOUNTER 2021-03-23 16:48 | Emergency (ER) | payer MEDICARE, MEDICAID ==
[~2021-03-23] VITALS: Ht 190.5 cm; Wt 122.0 kg
[~2021-03-23 16:48] MED LIST changes: +GABA-534 PO
[2021-03-23] MEDS ORDERED: CLIN150C8 PO (21:57)
[2021-03-23 22:56] VITALS: BP 130/71
== END 2021-03-23 22:58 | disposition home or self-care (01) ==
LOC: ER 16:49
DX: R60.0 Localized edema (principal); Z79.2 Long term (current) use of antibiotics; Z79.899 Other long term (current) drug therapy
CPT/HCPCS: 93971; 99284

== ENCOUNTER 2021-11-05 10:45 | Emergency (ER) | payer MEDICARE, MEDICAID ==
[~2021-11-05] VITALS: Ht 190.5 cm; Wt 122.7 kg
[~2021-11-05 10:45] MED LIST changes: +CLIN150C8 PO
[2021-11-05 11:15] VITALS: BP 139/75
[2021-11-05] MEDS ORDERED: ERYT1OIN6 EACHEYE (11:40)
== END 2021-11-05 11:48 | disposition home or self-care (01) ==
LOC: ER 10:45
DX: H10.33 Unspecified acute conjunctivitis, bilateral (principal); H57.13 Ocular pain, bilateral; Z79.2 Long term (current) use of antibiotics; Z79.899 Other long term (current) drug therapy
CPT/HCPCS: 99283

== ENCOUNTER 2022-02-03 11:56 | Day surgery (SDC) | payer MEDICARE, MEDICAID ==
[~2022-02-03] VITALS: Ht 190.5 cm; Wt 128.5 kg
[2022-02-03] VITALS (7 sets, daily range): BP systolic 150–186; BP diastolic 79–113
[2022-02-03] MEDS ORDERED: normal saline 1000ml 1,000 ML IV PRN (12:20)
[2022-02-03] MEDS ORDERED: ASCO-139 PO (12:51)
[2022-02-03] MEDS ORDERED: MULT-1085 PO (12:51)
[2022-02-03] MEDS ORDERED: midazolam 1 mg/ML 2ml injection ONE ×2 (14:17→14:52)
[2022-02-03] MEDS ORDERED: heparin sodium, porcine/PF 100unit/ml 5ML syringe ONE (14:17)
[2022-02-03] MEDS ORDERED: FENTANYL CITRATE/PF 50 MCG/1 ML VIAL ONE ×3 (14:17→14:52)
[2022-02-03 14:18] LABS: BASOPHILS # (AUTO) 0.1 X10'3 (0-0.2); EOSINOPHILS # (AUTO) 0.1 X10'3 (0-0.9); EOSINOPHILS % (AUTO) 1.3 % (0-6); HEMATOCRIT 40.6 % (42.0-52.0); HEMOGLOBIN 13.1 g/dl (14.0-17.9); LYMPHOCYTES # (AUTO) 2.3 X10'3 (1.1-4.8); LYMPHOCYTES % (AUTO) 44.9 % (21-51); MEAN CORPUSCULAR HEMOGLOBIN 29.3 PG (27.0-31.0); MEAN CORPUSCULAR HGB CONC 32.4 g/dL (33.0-36.5); MEAN CORPUSCULAR VOLUME 90.5 FL (78-98); MEAN PLATELET VOLUME 9.3 FL (7.4-10.4); MONOCYTES # (AUTO) 0.6 X10'3 (0-0.9); MONOCYTES % (AUTO) 11.3 % (2-12); NEUTROPHILS # (AUTO) 2.2 X10'3 (1.8-7.7); NEUTROPHILS % (AUTO) 41.5 % (42-75); PLATELET COUNT 172 X10'3 (140-440); RED BLOOD COUNT 4.49 X10'6 (4.70-6.10); RED CELL DISTRIBUTION WIDTH 16.6 % (11.5-14.5); WHITE BLOOD COUNT 5.2 X10'3 (4.5-11.0)
[2022-02-03] MEDS ORDERED: hydrALAZINE 20mg/ml inj. IV STA (15:55)
== END 2022-02-03 16:16 | disposition home or self-care (01) ==
LOC: SSTAY O 11:56
PROVIDERS: ATTEND Radiology Vascular & Interventional Radiology
DX: C20 Malignant neoplasm of rectum (principal); Z79.899 Other long term (current) drug therapy; Z87.891 Personal history of nicotine dependence; Z98.890 Other specified postprocedural states
CPT/HCPCS: 36415; 36561; 76937; 77001; 85025; 99152; 99153; C1769; C1788; C1894; J0360; J1642; J2250; J3010; J7030